=== PATIENT | male | born 1950 | race Hispanic/Latino ===

== ENCOUNTER 2024-02-19 10:05 | Observation (INO) | payer MEDICARE, OTHER ==
[~2024-02-19] VITALS: Ht 170.2 cm; Wt 93.6 kg
[~2024-02-19 10:05] MED LIST: APIX5TAB PO; ATOR40TA71 PO; EMPA10TA PO; EZET10TA81 PO; FOLI0.8T53 PO; LEVO175T9 PO; METO-408 PO; SACU1TAB PO; SIME80TA12 PO; SPIR25TA6 PO; TORS20TA4 PO; TRAM50TA4 PO
[2024-02-19 10:34] LABS: BASOPHILS % (AUTO) 1.2 % (0.0-5.0); EOSINOPHILS # (AUTO) 0.27 K/uL (0.00-0.70); EOSINOPHILS % (AUTO) 3.1 % (0.0-8.0); IMMATURE GRANULOCYTE ABSOLUTE 0.03 K/uL (0-1); LYMPHOCYTES # (AUTO) 1.4 K/uL (1.0-4.8); LYMPHOCYTES % (AUTO) 16.5 % (21.0-51.0); MEAN CORPUSCULAR HEMOGLOBIN 28.9 pg (27.0-33.0); MEAN CORPUSCULAR HGB CONC 31.8 g/dL (32.0-36.0); MEAN CORPUSCULAR VOLUME 90.9 fL (79-99); MONOCYTES # (AUTO) 0.5 K/uL (0.1-1.0); MONOCYTES % (AUTO) 6.2 % (3.0-13.0); NEUTROPHILS # (AUTO) 6.2 K/uL (1.8-7.7); NEUTROPHILS % (AUTO) 72.7 % (40.0-77.0); PLATELET COUNT (AUTO) 180 K/uL (130-400); WHITE BLOOD COUNT (AUTO) 8.6 K/uL (4.8-10.8)
[2024-02-19 10:45] LABS: CREATININE 1.7 mg/dL (0.5-1.3); POTASSIUM 4.5 mmol/L (3.5-5.1)
--- NOTE | 2024-02-19 10:48 | HMCIMG ---
US CHEST WALL SOFT TISSUE REASON: r/o hematoma vs abscess. COMPARISON: None TECHNIQUE: Left chest wall ultrasound study was performed. FINDINGS: Soft tissue swelling is seen around the pacemaker area. No focal mass lesion or hematoma or abscess is identified. IMPRESSION: Findings as described above.
[2024-02-19] MEDS: ondanSETRON 4MG INJ IVP ONE (11:04)
[2024-02-19] MEDS: morPHINE 2 MG SYG IVP ONE (11:05)
--- NOTE | 2024-02-19 11:16 | ERN ---
ED Note History of Present Illness Stated Complaint: SWELLING TO NEW PACEMAKER INSERTION SITE Chief Complaint: Other Problems Time Seen by MD: 10:06 Dictation: 73-year-old male presents to the ED for evaluation of left-sided chest wall pain.. Patient reports chest pain and states he had a pacemaker insertion yesterday performed by Dr. Copeland and is now reporting the surgical site is bleeding and swollen. Allergies: Coded Allergies: No Known Drug Allergies (Unverified Allergy, Unknown, 12/22/18) Home Meds Active Scripts Tramadol Hcl (Tramadol HCl) 50 Mg Tablet, 50 MG PO Q6HPRN PRN for PAIN, #15 TAB 0 Refills Prov:RANDALL COPELAND MD 02/18/24 Torsemide (Torsemide) 20 Mg Tablet, 1 TAB PO DAILY for 90 Days, #90 TAB 3 Refills Prov:FRANCHESKA ABEL MD 01/30/24 Empagliflozin (Jardiance) 10 Mg Tablet, 1 TAB PO DAILY for 90 Days, #90 TAB 0 Refills Prov:FRANCHESKA ABEL MD 01/30/24 Spironolactone (Spironolactone) 25 Mg Tablet, 1 TAB PO DAILY for 90 Days, #90 TAB 3 Refills Prov:FRANCHESKA ABEL MD 01/30/24 Sacubitril/Valsartan (Entresto 24 mg-26 mg Tablet) 24 Mg-26 Mg Tablet, 0.5 TAB PO BID for 90 Days, #45 TAB 3 Refills Prov:FRANCHESKA ABEL MD 01/30/24 Reported Medications Atorvastatin Calcium (Atorvastatin Calcium) 40 Mg Tablet, 1 TAB PO DAILY for 30 Days, #30 TAB 0 Refills 02/14/24 Simethicone (Simethicone) 80 Mg Tab.chew, 2 TAB PO AD for gas for 1 Day, #2 TAB 0 Refills 02/14/24 Ezetimibe (Zetia) 10 Mg Tablet, 1 TAB PO DAILY for 30 Days, #30 TAB 0 Refills 01/27/24 Levothyroxine Sodium (Levothyroxine Sodium) 175 Mcg Tablet, 1 TAB PO DAILY for 30 Days, #30 TAB 0 Refills 01/27/24 Folic Acid/Vit B Complex and C (Nephro Vitamins Tablet) 0.8 Mg Tablet, 0.8 MG PO DAILY, TAB 01/27/24 Metoprolol Succinate (Metoprolol Succinate) 25 Mg Tab.er.24h, 25 MG PO BID, TAB 01/27/24 Apixaban (Eliquis) 5 Mg Tablet, 5 MG PO BID, TAB 01/27/24 Discontinued Reported Medications Simethicone (Simethicone) 80 Mg Tab.chew, 2 TAB PO AD PRN for GA for 1 Day, #2 TAB 0 Refills 01/27/24 Discontinued Scripts Amoxicillin/Potassium Clav (Amox Tr-K Clv 875-125 mg Tab) 875 Mg-125 Mg Tablet, 1 TAB PO BID for 7 Days, #14 TAB 0 Refills Prov:CULLEN HUERTAS MD 01/30/24 Atorvastatin Calcium (LIPITOR) 40 Mg Tablet, 40 MG PO HS for 90 Days, #90 TAB 3 Refills Prov:FRANCHESKA ABEL MD 01/30/24 Past Medical History Past Medical History: CAD, CHF, High Cholesterol, Heart Disease, Hypertension, [place] Additional Past Medical Hx: HARD OF HEARING Surgical History: CABG Review of System Dictation Constitutional: Positive for surgical site evaluation, bleeding, swelling Negative for fever,chills, and weight loss Eyes: Negative for injury, pain,redness, and discharge ENT: Negative for injury,pain or swelling Cardiovascular: Negative for chest pain, palpitations, and edema Respiratory: Negative for shortness of breath, cough, and wheezing, Abdomen/GI: Negative for abdominal pain, nausea, vomiting, diarrhea, and constipation Back: Negative for injury and pain : Negative for injury, bleeding and discharge MS/Extremity: Negative for injury and deformity Skin: Negative for rash, and discoloration Neuro: Negative for headache, weakness, numbness, tingling, and seizure Psych: Negative for suicide ideation, homicidal ideation, and hallucinations Initial Vital Sign VS Vital Signs Date Time Temp Pulse Resp B/P (MAP) Pulse Ox O2 Delivery O2 Flow Rate FiO2 02/19/24 10:06 98.1 79 16 141/79 96 Room Air* 0 21 [place] [id number] [place] [id number] IMAGING REPORT Signed PATIENT: MELVA VYAS MR#: [id number] : 1950 SEX: M AGE: 73 LOCATION: [facility] ORDER 1016 STATUS: REG ER REPORT#: [id number] SERVICE 1014 REASON: pacemaker placement ORDERING PHYSICIAN: GEORGE HUTCHISON PROCEDURE: CXR1VW - CHEST 1VW CHEST 1VW HISTORY: Pacemaker placement COMPARISON: 02/18/2024 FINDINGS: A frontal projection of the chest was obtained. No acute pulmonary infiltrates is seen. Poststernotomy changes are seen. The heart is enlarged. Degenerative changes of the thoracolumbar spine are present. Pacemaker is seen entering from the left. Aortic calcifications are seen. IMPRESSION: 1. No acute pulmonary infiltrate is seen. DICTATED BY: ELISA VIEIRA MD DATE: 02/19/24 105 ELECTRONICALLY SIGNED BY: ELISA VIEIRA MD DATE: 02/19/24 1117 Physical Exam Dictation General: awake, alert, NAD Head/Face: Normocephalic, atraumatic Eyes: PERRL, EOMI, vision at baseline ENT: oral cavity clear, TMs clear, no signs of infection Neck: Trachea midline, supple, no nuchal rigidity Cardiovascular: RRR, normal S1/S2, No MRGs, no JVD Chest wall: Surgical site with mild bleeding and swelling Respiratory: CTAB, no respiratory distress, No rales or wheezes Abdomen: Soft, non-tender, non-distended, normal bowel sounds, no guarding or rebound. Skin: Warm, dry, normal turgor, no rash MS/Extremity: Pulses equal, no cyanosis, neurovascular intact, FROM Neuro: COAx4, GCS 15, strength 5/5, CN 2-12 intact, normal cerebellar exam, normal gait, Psych: Normal behavior, mood, and affect normal Results (Laboratory/Radiology) Laboratory/Radiology Laboratory Tests Test 02/19/24 10:25 White Blood Count 8.6 K/uL (4.8-10.8) Red Blood Count 4.40 MIL/uL (4.50-6.20) L Hemoglobin 12.7 g/dL (14.0-18.0) L Hematocrit 40.0 % (42-54) L Mean Corpuscular Volume 90.9 fL (79-99) Mean Corpuscular Hemoglobin 28.9 pg (27.0-33.0) Mean Corpuscular Hemoglobin Concent 31.8 g/dL (32.0-36.0) L Red Cell Distribution Width 16.0 % (11.0-15.5) H Platelet Count 180 K/uL (130-400) Mean Platelet Volume 10.9 fL (7.5-10.5) H Immature Granulocyte % (Auto) 0.3 % (0-1) Neutrophils (%) (Auto) 72.7 % (40.0-77.0) Lymphocytes (%) (Auto) 16.5 % (21.0-51.0) L Monocytes (%) (Auto) 6.2 % (3.0-13.0) Eosinophils (%) (Auto) 3.1 % (0.0-8.0) Basophils (%) (Auto) 1.2 % (0.0-5.0) Neutrophils # (Auto) 6.2 K/uL (1.8-7.7) Lymphocytes # (Auto) 1.4 K/uL (1.0-4.8) Monocytes # (Auto) 0.5 K/uL (0.1-1.0) Eosinophils # (Auto) 0.27 K/uL (0.00-0.70) Basophils # (Auto) 0.10 K/uL (0.00-0.20) Absolute Immature Granulocyte (auto 0.03 K/uL (0-1) Nucleated Red Blood Cells 0.0 % (0.0-0.19) Sodium Level 143 mmol/L (136-145) Potassium Level 4.5 mmol/L (3.5-5.1) Chloride Level 107 mmol/L (101-111) Carbon Dioxide Level 31 mmol/L (21-32) Blood Urea Nitrogen 30 mg/dL (7-18) H Creatinine 1.7 mg/dL (0.5-1.3) H Glomerular Filtration Rate Calc 42 mL/min (>90) Random Glucose 115 mg/dL (70-105) H Total Calcium 9.0 mg/dL (8.5-10.1) Troponin I High Sensitivity 302 ng/L (4-75) *H [place] [address] [place] [id number] IMAGING REPORT Signed PATIENT: MELVA VYAS MR#: [id number] : 1950 SEX: M AGE: 73 LOCATION: [facility] ORDER 1016 STATUS: REG ER [facility] REPORT#: [id number] SERVICE 1014 REASON: r/o hematoma vs abscess ORDERING PHYSICIAN: GEORGE HUTCHISON PROCEDURE: CHEST SCAN - US CHEST WALL SOFT TISSUE US CHEST WALL SOFT TISSUE REASON: r/o hematoma vs abscess. COMPARISON: None TECHNIQUE: Left chest wall ultrasound study was performed. FINDINGS: Soft tissue swelling is seen around the pacemaker area. No focal mass lesion or hematoma or abscess is identified. IMPRESSION: Findings as described above. DICTATED BY: ELISA VIEIRA MD DATE: 02/19/24 104 ELECTRONICALLY SIGNED BY: ELISA VIEIRA MD DATE: 02/19/24 104 Labs Reviewed?: Yes ED Course ED Course Orders Procedure Category Date Status Time Cbc With Differential LAB 02/19/24 Complete 10:14 Basic Metabolic Panel LAB 02/19/24 Complete 10:14 Troponin I High LAB 02/19/24 Complete Sensitivity 10:14 12 Lead Ekg Tracing- EKG 02/19/24 Complete Technical 10:14 Chest 1vw RAD 02/19/24 Resulted 10:14 Us Chest Wall Soft US 02/19/24 Resulted Tissue 10:14 Morphine 2mg Syg PHA 02/19/24 Complete (Morphine 2mg Syg) 11:00 Ondansetron 4mg Inj PHA 02/19/24 Complete (Zofran 4mg Inj) 11:00 Initiate CHRISTIAN 02/19/24 In Process Hyperglycemia Protoco 11:37 Insulin Regular, PHA 02/19/24 In Process Human 3ml (Humulin R 16:30 Initiate Hypoglycemia CHRISTIAN 02/19/24 In Process Protocol 11:37 Dextrose 50%-Water PHA 02/19/24 In Process (D50w) 12:00 Glucagon 1mg Kit PHA 02/19/24 In Process (Glucagon 1mg Kit) 12:00 Magnesium 2gm Premix PHA 02/19/24 In Process 50ml (Magnesium 2gm 12:00 Cbc With Differential LAB 02/20/24 Verified 04:00 B-Type Natriuretic LAB 02/20/24 Verified Peptide 04:00 Comprehensive LAB 02/20/24 Verified Metabolic Panel 04:00 Creatine Kinase, Total LAB 02/20/24 Verified 04:00 Hemoglobin A1c LAB 02/20/24 Verified 04:00 Hepatic Function Panel LAB 02/20/24 Verified 04:00 Lactic Acid LAB 02/20/24 Verified 04:00 Magnesium LAB 02/20/24 Verified 02:00 Procalcitonin LAB 02/20/24 Verified 04:00 Troponin I High LAB 02/20/24 Verified Sensitivity 04:00 Vital Signs(Adult CPOE 02/19/24 Transmitted Hospitalist) 11:38 Daily Weights CPOE 02/19/24 Transmitted 11:38 I&O Q Shift CPOE 02/19/24 Transmitted 11:38 Diphenhydramine Hcl PHA 02/19/24 In Process (Benadryl Inj) 12:00 Acetaminophen 325 Tab PHA 02/19/24 In Process (Tylenol 325mg Tab 12:00 Acetaminophen 325 Tab PHA 02/19/24 Complete (Tylenol 325mg Tab 12:00 Ondansetron 4mg Inj PHA 02/19/24 In Process (Zofran 4mg Inj) 12:00 Zolpidem Tartrate 5 PHA 02/19/24 In Process Mg Tab (Ambien) 12:00 Mag/Alum/Simeth 30ml PHA 02/19/24 In Process (Maalox Plus 30ml) 12:00 Lactulose 20 Gm/30 Ml PHA 02/19/24 In Process Udcup (Constulose 12:00 Nitroglycerin 0.4mg PHA 02/19/24 In Process Sl Tab (Nitrostat) 12:00 Guaifenesin-Dm PHA 02/19/24 In Process 200/20mg 10ml 12:00 Famotidine 20mg Vial PHA 02/19/24 Complete (Pepcid 20mg Vial) 12:00 Nurse To Enter Home CPOE 02/19/24 Transmitted Medication 11:38 Admit Orders ADM 02/19/24 Transmitted 11:38 Telemetry Monitoring CPOE 02/19/24 Transmitted 11:38 Activity: Br W/Brp CPOE 02/19/24 Transmitted With Assist 11:38 Heart Healthy Diet DIET 02/19/24 Transmitted Lunch Acetaminophen 325 Tab PHA 02/19/24 In Process (Tylenol 325mg Tab 12:00 Ketorolac PHA 02/19/24 In Process Tromethamine 15mg/Ml 12:00 Morphine 2mg Syg PHA 02/19/24 In Process (Morphine 2mg Syg) 12:00 Case Management CM 02/19/24 Transmitted Evaluation 11:38 0.9%Nacl 1000ml (Ns PHA 02/19/24 In Process 1000ml) 12:00 Hydralazine 20mg Inj PHA 02/19/24 In Process (Apresoline 20mg In 12:00 Famotidine 20mg Vial PHA 02/19/24 In Process (Pepcid 20mg Vial) 21:00 Cardiology Consult CONPHYSVC 02/19/24 Transmitted 11:38 Pipe [employer]itter [employer] SS 02/19/24 Transmitted Evaluaton 16:28 Current Medications Medications (Trade) Dose Ordered Sig/Jon Route PRN Reason Start Time Stop Time Status Last Admin Dose Admin Morphine Sulfate (morPHINE 2MG SYG) 2 mg ONCE ONCE IVP 02/19/24 11:00 02/19/24 11:01 DC 02/19/24 11:05 Ondansetron HCl (zoFRAN 4MG INJ) 4 mg ONCE ONCE IVP 02/19/24 11:00 02/19/24 11:01 DC 02/19/24 11:04 Vital Signs Date Time Temp Pulse Resp B/P (MAP) Pulse Ox O2 Delivery O2 Flow Rate FiO2 02/19/24 15:30 98.1 72 16 129/80 99 Room Air* 0 02/19/24 15:00 98.1 71 16 127/75 96 Room Air* 0 02/19/24 14:22 98.1 72 16 129/79 96 Room Air* 0 02/19/24 13:45 98.1 74 16 130/81 97 Room Air* 0 02/19/24 10:06 98.1 73 16 141/79 96 Room Air 02/19/24 10:06 98.1 79 16 141/79 96 Room Air* [address] [address] IMAGING REPORT Signed PATIENT: MELVA VYAS MR#: [id number] : 1950 SEX: M AGE: 73 LOCATION: [facility] ORDER 1016 STATUS: REG ER REPORT#: [id number] SERVICE 1014 REASON: pacemaker placement ORDERING PHYSICIAN: GEORGE HUTCHISON PROCEDURE: CXR1VW - CHEST 1VW CHEST 1VW HISTORY: Pacemaker placement COMPARISON: 02/18/2024 FINDINGS: A frontal projection of the chest was obtained. No acute pulmonary infiltrates is seen. Poststernotomy changes are seen. The heart is enlarged. Degenerative changes of the thoracolumbar spine are present. Pacemaker is seen entering from the left. Aortic calcifications are seen. IMPRESSION: 1. No acute pulmonary infiltrate is seen. DICTATED BY: ELISA VIEIRA MD DATE: 02/19/24 1057 ELECTRONICALLY SIGNED BY: ELISA VIEIRA MD DATE: 02/19/24 1117 Medical Decision Making MDM MDM: Differential diagnosis: Chest pain, Postoperative complication, postoperative hemorrhage Rationale: Tests considered and ordered secondary to shared decision making include: labs, ECG and radiology Previous outside records reviewed: Old ER visits. Risk of complication and/or morbidity or mortality of patient management: None Medications-Per medication reconciliation Need for hospitalization: Patient does meet criteria for hospitalization. Need for emergency major/minor surgery: No There are no social concerns with this patient. Prescription drug management Prescriptions will include symptomatic care Patient's prior external medical records from other ER visits were reviewed by me as indicated. Prior testing and results from previous visits were reviewed. Prior tests were taken into account with medical decision making and resource utilization, independent historian/historians were used to obtain complete medical history. I independently interpreted the test that were performed, results were reviewed by me and considered findings on radiology if ordered. Medical management and examination interpretation discussions were had by me with other qualified healthcare professionals as indicated for the patient's care. DX & DISP Disposition: Inpatient Decision to Admit Date: Feb 19, 2024 Departure Impression: Primary Impression: Chest pain Additional Impressions: Soft tissue swelling of chest wall, S/P placement of cardiac pacemaker Condition: Stable Referrals: FRANCHESKA ABEL MD (PCP) I have reviewed, & agreed with my scribe's, documentation. (Entered by Shama Jaffe, acting as a scribe for CHANCE Hutchison) I have reviewed the case, and I agree with, Diagnosis and Plan I performed the substantive portion of the visit. I have reviewed and personally made and approve the management plan that is documented in the note by myself or the DERECK. I acknowledge for responsibility for the patient's management plan. I personally scribed for KENISHA VARGAS MD ([email or web address]) on 02/19/24 at 11:16. Electronically submitted by Shama Jaffe ([email or web address]). KENISHA VARGAS MD Feb 19, 2024 11:16 GEORGE HUTCHISON Feb 19, 2024 12:17
[2024-02-19] MEDS ORDERED: MAG/ALUM/SIMETH 30 ML UDCUP PO PRN (12:00)
[2024-02-19] MEDS ORDERED: FAMOTIDINE 20MG VIAL IV PRN (12:00)
[2024-02-19] MEDS ORDERED: guaiFENesin-DM 200/20MG 10ML PO PRN (12:00)
[2024-02-19] MEDS ORDERED: DEXTROSE 50%-WATER 50 ML DISP.SYRIN IV PRN (12:00)
[2024-02-19] MEDS ORDERED: MAGNESIUM 2GM PREMIX 50ML 50 ML IV PRN (12:00)
[2024-02-19] MEDS ORDERED: acetaMINOPHEN 325 MG TAB PO PRN ×3 (12:00)
[2024-02-19] MEDS ORDERED: morPHINE 2 MG SYG IVP PRN (12:00)
[2024-02-19] MEDS ORDERED: DiphenhydrAMINE HCL 50 MG/ML VIAL IV PRN (12:00)
[2024-02-19] MEDS ORDERED: NITROGLYCERIN 0.4 MG SL TAB SL PRN (12:00)
[2024-02-19] MEDS ORDERED: ondanSETRON 4MG INJ IV PRN (12:00)
[2024-02-19] MEDS ORDERED: hydrALAZine 20MG/ML VIAL IV PRN (12:00)
[2024-02-19] MEDS ORDERED: LACTULOSE 20 GM/30 ML UDCUP PO PRN (12:00)
[2024-02-19] MEDS ORDERED: ZOLPidem TARTrate 5 MG TAB PO PRN (12:00)
[2024-02-19] MEDS ORDERED: GLUCAGON 1MG KIT 1 MG ML IM PRN (12:00)
--- NOTE | 2024-02-19 12:04 | EKG ---
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
[2024-02-19] MEDS: 0.9%NACL 1000ML 1,000 ML IV SCH (12:10)
--- NOTE | 2024-02-19 13:20 | NUR ---
pt did not bring medications or list family will bring by later
--- NOTE | 2024-02-19 13:53 | HP ---
[facility] HISTORY AND PHYSICAL Date of Service: Feb 19, 2024 Time of Service: 13:42 PCP: self refferal Admitting: Dr Travis, Allergies: No Allergy Information Available, No Known Drug Allergies HISTORY OF PRESENT ILLNESS: [ Patient is 73 years old male with a past medical history of hypertension, diabetes, Coronary Artery Disease, CABG in 2019, mild hypercholesteremia, h ypothyroidism, GERD, recent pacemaker placement 02/18/2024, CHF EF 20 to 25%, who came to emergency department with a complaint of left chest pain since yesterday. Patient stated that yesterday he had a placement of a pacemaker by Dr. Woodward and then he was discharged home. At 1st he had little pain within in progress to worsened worse. Today in the morning when he woke up the left chest pain was unbearable and he was bleeding from the site of pacemaker. Also noted that the swelling has progressed worse. Patient decided to call 911 and come to emergency department for further evaluation. Most recent vital signs temperature 98.1 pulse 79 respirations 16 blood pressure 141/79 patient is on room air satting 96%. WBC 8.6 hemoglobin 12.7 hematocrit 40 platelets 180. Sodium 143 potassium 4.5 CO2 31 creatinine 1.7 BUN 30 GFR 42 troponin three O2 calcium 9.0 random glucose 115 Chest ultrasound showed soft tissue swelling around the pacemaker nothing acute. Chest x-ray negative. We will admit patient for ups for further evaluation and recommendations. was consulted. We will continue to monitor patient in the meantime. A.m. labs] REVIEW OF SYSTEMS CONSTITUTIONAL: Denies fevers, chills, or night sweats. No unintentional weight loss reported. NEUROLOGICAL: Denies headache, amaurosis fugax, motor weakness, sensory deficit, vertigo/spinning sensation, gait abnormalities, or tremors. ENT: No hearing loss, otalgia, otorrhea, rhinitis, rhinorrhea, hoarseness, or sore throat. CARDIOVASCULAR: Denies any exertional angina, dyspnea on exertion, orthopnea, paroxysmal nocturnal dyspnea, palpitations, life-threatening arrhythmias, claudi cation. Left chest pain s/p pacemaker placement 02/18/2024 PULMONARY: Denies any shortness of breath, cough, phlegm/sputum, hemoptysis, pleuritic chest pain. SLEEP: Denies morning headaches, daytime somnolence or napping. Denies difficulty falling asleep, staying asleep, waking from sleep. Denies knowledge of snoring. GASTROINTESTINAL: Denies any type of dysphagia to either liquids or solids. Denies nausea, vomiting, pyrosis, early satiety, abdominal pain, diarrhea, constipation, or changes in stool consistency or caliber. Denies coffee-ground emesis, hematemesis, hematochezia, or melanotic stools. GENITOURINARY: Denies frequency, urgency, nocturia, hematuria or incontinence (Storage/Irritative symptoms.) Low urinary stream, straining to void, urinary intermittency or hesitancy, splitting of the voiding stream, terminal dribbling. ENDOCRINOLOGIC: Denies polyuria, polydipsia, polyphagia or heat/cold intolerances. HEMATOLOGIC: Denies thrombophilia/previous clots, or coagulopathy/bleeding disorders. ONCOLOGIC: Denies personal history of malignancy. DERMATOLOGIC: Denies rashes or pruritus. PSYCHIATRIC: Denies any suicidal or homicidal ideation. Denies hallucinations. PAST MEDICAL HISTORY: [ ] PAST SURGICAL HISTORY: [ ] PAST SOCIAL HISTORY: [ ] FAMILY HISTORY: [ ] Coded Allergies: No Known Drug Allergies (Unverified Allergy, Unknown, 12/22/18) PHYSICAL EXAM GENERAL APPEARANCE: The patient is awake, alert, and oriented, in no acute cardiopulmonary distress. NEUROLOGICAL: Cranial nerves II-XII grossly intact. Motor is 5/5 in bilateral upper and lower extremities proximal to distal. No sensory deficits. HEENT: Face is symmetric. Pupils are equal and reactive. Extraocular movements are intact. NECK: Supple. No JVD. No thyromegaly. No submental, submandibular, pre- /postauricular, occipital or supraclavicular lymphadenopathy. CHEST: Normal chest expansion. No Telemetry. LUNGS: Absence of any rales, rhonchi or any wheezing. CARDIOVASCULAR: Regular. S1 and S2 normal. No appreciable rubs, murmurs or gallops. ABDOMEN: Soft, nontender, and nondistended. There is no rebound, voluntary guarding, or rigidity. : Deferred. No [place]. EXTREMITIES: Non-edematous and not cyanotic. No clubbing. Good capillary refill. SKIN: No skin breakdown. Vital Sign (Last 24 Hours) 02/19/24 10:06 Temp 98.1 Pulse 73 Resp 16 B/P (MAP) 141/79 Pulse Ox 96 O2 Delivery Room Air O2 Flow Rate 0 FiO2 21 LABS: Laboratory: Test 02/19/24 10:25 Range/Units White Blood Count 8.6 4.8-10.8 K/uL Red Blood Count 4.40 L 4.50-6.20 MIL/uL Hemoglobin 12.7 L 14.0-18.0 g/dL Hematocrit 40.0 L 42-54 % Mean Corpuscular Volume 90.9 79-99 fL Mean Corpuscular Hemoglobin 28.9 27.0-33.0 pg Mean Corpuscular Hemoglobin Concent 31.8 L 32.0-36.0 g/dL Red Cell Distribution Width 16.0 H 11.0-15.5 % Platelet Count 180 130-400 K/uL Mean Platelet Volume 10.9 H 7.5-10.5 fL Immature Granulocyte % (Auto) 0.3 0-1 % Neutrophils (%) (Auto) 72.7 40.0-77.0 % Lymphocytes (%) (Auto) 16.5 L 21.0-51.0 % Monocytes (%) (Auto) 6.2 3.0-13.0 % Eosinophils (%) (Auto) 3.1 0.0-8.0 % Basophils (%) (Auto) 1.2 0.0-5.0 % Neutrophils # (Auto) 6.2 1.8-7.7 K/uL Lymphocytes # (Auto) 1.4 1.0-4.8 K/uL Monocytes # (Auto) 0.5 0.1-1.0 K/uL Eosinophils # (Auto) 0.27 0.00-0.70 K/uL Basophils # (Auto) 0.10 0.00-0.20 K/uL Absolute Immature Granulocyte (auto 0.03 0-1 K/uL Nucleated Red Blood Cells 0.0 0.0-0.19 % Sodium Level 143 136-145 mmol/L Potassium Level 4.5 3.5-5.1 mmol/L Chloride Level 107 101-111 mmol/L Carbon Dioxide Level 31 21-32 mmol/L Blood Urea Nitrogen 30 H 7-18 mg/dL Creatinine 1.7 H 0.5-1.3 mg/dL Glomerular Filtration Rate Calc 42 >90 mL/min Random Glucose 115 H 70-105 mg/dL Total Calcium 9.0 8.5-10.1 mg/dL Troponin I High Sensitivity 302 *H 4-75 ng/L Current Medications Medications (Trade) Dose Ordered Sig/Jon Route PRN Reason Start Time Stop Time Status Last Admin Dose Admin Acetaminophen (TYLenol 325MG TAB) 650 mg Q4H PRN PO MILD PAIN (1-3) 02/19/24 12:00 02/19/24 11:48 DC Acetaminophen (TYLenol 325MG TAB) 650 mg Q6H PRN PO MILD PAIN (1-3) 02/19/24 12:00 03/20/24 11:59 Acetaminophen (TYLenol 325MG TAB) 650 mg Q6H PRN PO TEMPERATURE GREATER THAN 101.5 02/19/24 12:00 03/20/24 11:59 Al Hydroxide/Mg Hydroxide (MAALox PLUS 30ML) 30 ml Q6H PRN PO INDIGESTION 02/19/24 12:00 03/20/24 11:59 Dextrose (D50w) 50 ml AD PRN IV HYPOGLYCEMIA PROTOCOL 02/19/24 12:00 03/20/24 11:59 Diphenhydramine HCl (BENAdryl INJ) 25 mg Q6H PRN IV SEVERE ITCHING/RASH 02/19/24 12:00 03/20/24 11:59 Famotidine (Pepcid 20mg Vial) 20 mg BID PRN IV NAUSEA/VOMITING 02/19/24 12:00 02/19/24 11:44 DC Famotidine (Pepcid 20mg Vial) 20 mg Q24H IV 02/19/24 21:00 03/20/24 20:59 Glucagon (Glucagon 1mg Kit) 1 mg AD PRN IM HYPOGLYCEMIA PROTOCOL 02/19/24 12:00 03/20/24 11:59 Guaifenesin/ Dextromethorphan (RobiTUSSin DM 200/20MG 10ML) 10 ml Q4H PRN PO COUGH 02/19/24 12:00 03/20/24 11:59 Hydralazine HCl (APRESOLine 20MG INJ) 10 mg Q6H PRN IV For:SBP above 160;DBP above 90 02/19/24 12:00 03/20/24 11:59 Insulin Human Regular (humuLIN R 100 UNIT/ML 3ML) INSULIN SLIDING SCAL... ACHS SQ 02/19/24 16:30 03/20/24 16:29 Ketorolac Tromethamine (toRADol) 15 mg Q8H PRN IV MODERATE PAIN (4-6) 02/19/24 12:00 02/24/24 11:59 Lactulose (Constulose 20gm/ 30ml Udcup) 20 gm BID PRN PO CONSTIPATION 02/19/24 12:00 03/20/24 11:59 Magnesium Sulfate 50 ml @ 0 mls/hr PROTOCOL PRN IV other 02/19/24 12:00 03/20/24 11:59 Morphine Sulfate (morPHINE 2MG SYG) 1 mg Q4H PRN IVP SEVERE PAIN (7-10) 02/19/24 12:00 02/26/24 11:59 Nitroglycerin (Nitrostat) 0.4 mg PROTOCOL PRN SL CHEST PAIN 02/19/24 12:00 03/20/24 11:59 Ondansetron HCl (zoFRAN 4MG INJ) 4 mg Q6H PRN IV NAUSEA/VOMITING 02/19/24 12:00 03/20/24 11:59 Sodium Chloride 1,000 ml @ 60 mls/hr [id number] IV 02/19/24 12:00 03/20/24 11:59 02/19/24 12:10 60 MLS/HR Zolpidem Tartrate (AmbIEN) 5 mg HS PRN PO INSOMNIA 02/19/24 12:00 03/20/24 11:59 DIAGNOSTICS / RADIOLOGY: [ ] ASSESSMENT: [ Acute hypoxic respiratory failure POA Acute left-sided chest pain POA Pacemaker placement 02/18/[address] Woodward Hypertroponinemia POA Uncontrolled hypertension POA Uncontrolled diabetes mellitus type 2 with hypoglycemia POA Coronary Artery Disease s/p CABG 2017 POA CHF EF 20 to 25% systolic dysfunction, diastolic function unable to be assessed, POA Acute on chronic kidney disease POA Generalized weakness POA Morbid obesity BMI 36 POA Multifactorial anemia POA Limited immobility secondary to physical deconditioning POA Hypercholesterolemia POA Hypothyroidism POA GERD POA Recent strep A positive 02/03] PLAN: [Admit to: Medical-surgical floor with tele Consults: Antibiotics: Tests: NEURO: Minimize central acting medications as possible. Fall Precautions. Well lighted room through the day and minimize interruptions through the night to prevent acute delirium. PULMONARY: Supplemental 02 as needed BiPAP as necessary, for respiratory distress Titrate Fio2 to keep Spo2 > or = 90% DuoNebs and CPT as needed IS hourly while awake for pulmonary hygiene Out of bed to chair as tolerated VAP Bundle Maintain aspiration precautions at all times CARDIOVASCULAR: Follow hemodynamics. Vital signs per facility protocol GI & NUTRITION: Continue nutritional support Aspirations precautions Prokinetic agents and laxatives as needed KIDNEYS & ELECTROLYTES: Strict monitoring of intake and output Daily weights Avoid nephrotoxic agents Monitor electrolytes and replace as needed Goal urine output of 30mL/hr or 0.5mL/kg/hr Medications to be dosed according to renal function. Avoid contrast if possible ENDOCRINE: Maintain blood glucose between 100-180 at all times. Insulin sliding scale for blood glucose management Hypoglycemia and hyperglycemia protocol in place INFECTIOUS DISEASE: Trend temperature, WBC and procalcitonin level Follow cultures, deescalate antibiotics as soon as possible. Panculture if new onset fever HEMATOLOGY & COAGULATION: Monitor H&H. Keep Hgb > 7 Transfuse 1 unit of PRBC for Hgb < 7 Transfuse 1 pack of platelets of platelets < 20, 000 Watch for any signs and symptoms of bleeding SKIN: Pressure ulcer prevention per facility protocol Specialty mattress as needed Treatment plan discussed with patient and family at the bedside Medications to be reconciled once obtained by patient and/or family and available to be reconciled in computer p.r.n. medication for pain nausea and vomiting Questions were answered We will continue to monitor the patient closely Hog Stomach Preparer for disposition Rehab: PT/OT GI: PPI DVT: SCD's Code Status: Full Resuscitation Disposition: TBD Prognosis: Guarded ] ADVANCED CARE PLANNING 1. Which of the following were discussed? Hospice Care - Yes / No Therapeutic options - Yes / No Advance Directives - Yes / No Other discussions - 2. Discussed with who? Patient 3. Voluntary nature of this service was explained to the patient? Yes / No 4. Amount of time spent - ___ more than 35 minutes ____ 5. Reviewed by Physician? (if this service was performed by NPP) Yes / No ATTESTATION BY PHYSICIAN I have seen and examined the patient. I reviewed the documentation, medical decision making, and treatment plan as noted by the mid-level provider above. I agree with the findings and plan of care. BhadVictoria lomax MD, [facility] Feb 19, 2024 13:53
--- NOTE | 2024-02-19 14:01 | NUR ---
CARDILOGY CONSULT DONE DR COPELAND MADE AWARE
--- NOTE | 2024-02-19 15:55 | NUR ---
DR COPELAND AT BEDSIDE FOR CARDIOLOGY CONSULT
--- NOTE | 2024-02-19 16:00 | NUR ---
[employer] NAVIGATION INSTALLER NURSE AT BEDSIDE FOR APPLICATION OF PRESSURE DRESSING TO LEFT CHEST
--- NOTE | 2024-02-19 16:28 | CONS ---
[facility] CARDIOLOGY CONSULTATION NOTE Date Patient Seen: Feb 19, 2024 Time of Visit: 16:09 Reason for Consultation: Chest pain History of Present Illness: The patient is a 74-year-old male with coronary artery disease, ischemic cardiomyopathy with EF 20-25% who underwent dual-chamber ICD (not pacemaker) implantation yesterday. The patient has chronic left shoulder pain. During the procedure, he complained of severe left shoulder pain however this subsided once moderate sedation was given. The procedure was uneventful and he was discharged home yesterday. He then experienced excruciating pain in his shoulder and at the site of the defibrillator. He called 911 and presented to the emergency room. I examined the patient. He has a small hematoma with some surface bleeding noted on the dressing. His pain is worse at the shoulder with palpation he also. He also has moderate pain at the site but only with palpation, and no chest pain. Labs are unremarkable. His creatinine is 1.7 which is chronic. His troponin is 302 however he has always run positive troponins up to 292 in January of 2024. The patient was noted yesterday to have very poor hygiene. Today, he had dried rice on his chest. We would question whether or not he is being adequately ca red for at home. Physical Examination: GENERAL: The patient is in no apparent distress. He appears to have poor hygiene as was noted yesterday as well. HEENT: Grossly within normal limits NECK: No JVD LUNGS: Clear HEART: Regular with no murmur CHEST: Tenderness to palpation is noted in H&P EXT: No edema Vital Signs (last 8hr) Date Time Temp Pulse Resp B/P (MAP) Pulse Ox O2 Delivery O2 Flow Rate FiO2 02/19/24 14:22 98.1 72 16 129/79 96 Room Air* 0 21 02/19/24 10:06 98.1 73 16 141/79 96 Room Air 02/19/24 10:06 98.1 79 16 141/79 96 Room Air* 0 21 Laboratory: [ ] Hematology Labs: Test 02/19/24 10:25 Range/Units White Blood Count 8.6 4.8-10.8 K/uL Red Blood Count 4.40 L 4.50-6.20 MIL/uL Hemoglobin 12.7 L 14.0-18.0 g/dL Hematocrit 40.0 L 42-54 % Mean Corpuscular Volume 90.9 79-99 fL Mean Corpuscular Hemoglobin 28.9 27.0-33.0 pg Mean Corpuscular Hemoglobin Concent 31.8 L 32.0-36.0 g/dL Red Cell Distribution Width 16.0 H 11.0-15.5 % Platelet Count 180 130-400 K/uL Mean Platelet Volume 10.9 H 7.5-10.5 fL Immature Granulocyte % (Auto) 0.3 0-1 % Neutrophils (%) (Auto) 72.7 40.0-77.0 % Lymphocytes (%) (Auto) 16.5 L 21.0-51.0 % Monocytes (%) (Auto) 6.2 3.0-13.0 % Eosinophils (%) (Auto) 3.1 0.0-8.0 % Basophils (%) (Auto) 1.2 0.0-5.0 % Neutrophils # (Auto) 6.2 1.8-7.7 K/uL Lymphocytes # (Auto) 1.4 1.0-4.8 K/uL Monocytes # (Auto) 0.5 0.1-1.0 K/uL Eosinophils # (Auto) 0.27 0.00-0.70 K/uL Basophils # (Auto) 0.10 0.00-0.20 K/uL Absolute Immature Granulocyte (auto 0.03 0-1 K/uL Nucleated Red Blood Cells 0.0 0.0-0.19 % Chemistry Labs: Test 02/19/24 10:25 Range/Units Sodium Level 143 136-145 mmol/L Potassium Level 4.5 3.5-5.1 mmol/L Chloride Level 107 101-111 mmol/L Carbon Dioxide Level 31 21-32 mmol/L Blood Urea Nitrogen 30 H 7-18 mg/dL Creatinine 1.7 H 0.5-1.3 mg/dL Glomerular Filtration Rate Calc 42 >90 mL/min Random Glucose 115 H 70-105 mg/dL Total Calcium 9.0 8.5-10.1 mg/dL Troponin I High Sensitivity 302 *H 4-75 ng/L Diagnostics / Radiology: [Copy/Paste Echos/Imaging Report here] Assessment: 1. Chronic left shoulder pain 2. Postoperative pain at ICD implantation site from yesterday 3. Small hematoma at ICD site 4. No cardiac source for chest pain 5. Chronic renal insufficiency 6. Elevated troponin-chronic 7. Poor hygiene -question of home situation. Plan: 1. The chest dressing was changed with a nonadherent dressing and Tegaderm 2. A pressure dressing was applied by outside laborer staff 3. The patient has already been admitted. I would recommend a director of social media marketing consult to evaluate this patient's home situation given his poor hygiene and suspicion of for care at home. 4. I will re-evaluate the hematoma tomorrow. Thank you very much for this consultation. RANDALL COPELAND MD Feb 19, 2024 16:28
[2024-02-19] MEDS: INSULIN humuLIN R 100 UNIT/ML 3ML SQ SCH (16:30)
--- NOTE | 2024-02-19 20:59 | NUR ---
ATTEMPTED TO CALL REPORT, NURSE NOT AVAILABLE AT THIS TIME WILL CALL BACK
[2024-02-19 22:00] VITALS: BP 123/84; PULSE 78; RESP 18; TEMP 97.7; O2SAT 98
[2024-02-19] MEDS: FAMOTIDINE 20MG VIAL IV SCH (22:12)
[2024-02-19] MEDS: ketOROlac 15MG/ML VIAL (15MG/ML) IV PRN (22:12)
[2024-02-20 04:00] VITALS: BP 113/68; PULSE 67; RESP 19; TEMP 97.8
[2024-02-20 05:21] LABS: BASOPHILS # (AUTO) 0.07 K/uL (0.00-0.20); EOSINOPHILS # (AUTO) 0.21 K/uL (0.00-0.70); EOSINOPHILS % (AUTO) 2.9 % (0.0-8.0); IMMATURE GRANULOCYTE ABSOLUTE 0.02 K/uL (0-1); LYMPHOCYTES # (AUTO) 1.5 K/uL (1.0-4.8); LYMPHOCYTES % (AUTO) 20.4 % (21.0-51.0); MEAN CORPUSCULAR HEMOGLOBIN 29.2 pg (27.0-33.0); MEAN CORPUSCULAR HGB CONC 32.1 g/dL (32.0-36.0); MEAN CORPUSCULAR VOLUME 91.2 fL (79-99); MONOCYTES # (AUTO) 0.6 K/uL (0.1-1.0); NEUTROPHILS % (AUTO) 67.4 % (40.0-77.0); PLATELET COUNT (AUTO) 157 K/uL (130-400); RED BLOOD CELL COUNT(AUTO) 3.73 MIL/uL (4.50-6.20); RED CELL DISTRIBUTION WIDTH 16.3 % (11.0-15.5); WHITE BLOOD COUNT (AUTO) 7.3 K/uL (4.8-10.8)
[2024-02-20 05:44] LABS: ALBUMIN 2.7 g/dL (3.5-5.0); BILIRUBIN,DIRECT 0.1 mg/dL (0.0-0.3); BILIRUBIN,TOTAL 0.5 mg/dL (0.2-1.0); CREATININE 1.6 mg/dL (0.5-1.3); MAGNESIUM 1.9 mg/dL (1.80-2.40); POTASSIUM 4.5 mmol/L (3.5-5.1); TOTAL PROTEIN, SERUM 5.8 g/dL (6.0-8.3)
[2024-02-20] MEDS ORDERED: SIMETHICONE 80 MG TAB.CHEW PO SCH (07:00)
[2024-02-20] MEDS: levoTHYROxine 25 MCG TABLET PO SCH (07:52)
[2024-02-20] MEDS: levoTHYROxine 150 MCG TABLET PO SCH (07:52)
[2024-02-20 08:00] VITALS: BP 118/67; PULSE 77; RESP 18; TEMP 97.3; O2SAT 99
--- NOTE | 2024-02-20 10:47 | PN ---
The patient is doing well today. He looks less disheveled, thanks to the nursing staff. The pressure dressing was removed and there is no residual hematoma. The dressing is clean and dry. The patient complains only of mild pain in his left shoulder. environmental services project manager has addressed the issues brought up yesterday and is evaluating. Plan: 1. The patient can be discharged home from a cardiac standpoint, pending completion of rn social services evaluation and disposition. 2. The patient already has an appointment in the office in approximately a week to 10 days. 3. Will be important for this patient to keep the dressing on until we see him in the office to ensure that it does not get contaminated. Vitals/Labs Vital Signs Date Time Temp Pulse Resp B/P (MAP) Pulse Ox O2 Delivery O2 Flow Rate FiO2 02/20/24 08:00 97.3 77 18 118/67 99 Room Air 21 02/19/24 22:00 0 Laboratory Tests 02/20/24 05:03 Medications Current Medications Morphine Sulfate 2 mg ONCE ONCE IVP Last administered on 02/19/24at 11:05; Start 02/19/24 at 11:00; Stop 02/19/24 at 11:01; Status DC Ondansetron HCl 4 mg ONCE ONCE IVP Last administered on 02/19/24at 11:04; Start 02/19/24 at 11:00; Stop 02/19/24 at 11:01; Status DC Insulin Human Regular INSULIN SLIDING SCAL... ACHS SQ; Start 02/19/24 at 16:30; Stop 03/20/24 at 16:29 Dextrose 50 ml AD PRN IV; Start 02/19/24 at 12:00; Stop 03/20/24 at 11:59 Glucagon 1 mg AD PRN IM; Start 02/19/24 at 12:00; Stop 03/20/24 at 11:59 Magnesium Sulfate 50 ml @ 0 mls/hr PROTOCOL PRN IV; Start 02/19/24 at 12:00; Stop 03/20/24 at 11:59 Diphenhydramine HCl 25 mg Q6H PRN IV; Start 02/19/24 at 12:00; Stop 03/20/24 at 11:59 Acetaminophen 650 mg Q6H PRN PO; Start 02/19/24 at 12:00; Stop 03/20/24 at 11:59 Acetaminophen 650 mg Q4H PRN PO; Start 02/19/24 at 12:00; Stop 02/19/24 at 11:48; Status DC Ondansetron HCl 4 mg Q6H PRN IV; Start 02/19/24 at 12:00; Stop 03/20/24 at 11:59 Zolpidem Tartrate 5 mg HS PRN PO; Start 02/19/24 at 12:00; Stop 03/20/24 at 11:59 Al Hydroxide/Mg Hydroxide 30 ml Q6H PRN PO; Start 02/19/24 at 12:00; Stop 03/20/24 at 11:59 Lactulose 20 gm BID PRN PO; Start 02/19/24 at 12:00; Stop 03/20/24 at 11:59 Nitroglycerin 0.4 mg PROTOCOL PRN SL; Start 02/19/24 at 12:00; Stop 03/20/24 at 11:59 Guaifenesin/ Dextromethorphan 10 ml Q4H PRN PO; Start 02/19/24 at 12:00; Stop 03/20/24 at 11:59 Famotidine 20 mg BID PRN IV; Start 02/19/24 at 12:00; Stop 02/19/24 at 11:44; Status DC Acetaminophen 650 mg Q6H PRN PO; Start 02/19/24 at 12:00; Stop 03/20/24 at 11:59 Ketorolac Tromethamine 15 mg Q8H PRN IV Last administered on 02/19/24at 22:12; Start 02/19/24 at 12:00; Stop 02/24/24 at 11:59 Morphine Sulfate 1 mg Q4H PRN IVP; Start 02/19/24 at 12:00; Stop 02/26/24 at 11:59 Sodium Chloride 1,000 ml @ 60 mls/hr [id number] IV Last administered on 02/19/24at 12:10; Start 02/19/24 at 12:00; Stop 03/20/24 at 11:59 Hydralazine HCl 10 mg Q6H PRN IV; Start 02/19/24 at 12:00; Stop 03/20/24 at 11:59 Famotidine 20 mg Q24H IV Last administered on 02/19/24at 22:12; Start 02/19/24 at 21:00; Stop 03/20/24 at 20:59 Atorvastatin Calcium 40 mg DAILY PO; Start 02/20/24 at 09:00; Stop 03/21/24 at 08:59 Empaglifozin 10 mg DAILY PO; Start 02/20/24 at 09:00; Stop 03/21/24 at 08:59 EZETIMIBE 10 mg DAILY PO; Start 02/20/24 at 09:00; Stop 03/21/24 at 08:59 Metoprolol Succinate 25 mg BID PO; Start 02/20/24 at 09:00; Stop 03/21/24 at 08:59 Sacubitril/ Valsartan 1 each BID PO; Start 02/20/24 at 09:00; Stop 03/21/24 at 08:59 Simethicone 40 mg AD PO; Start 02/20/24 at 07:00; Stop 03/21/24 at 06:59 Spironolactone 25 mg DAILY PO; Start 02/20/24 at 09:00; Stop 03/21/24 at 08:59 Torsemide 5 mg DAILY PO; Start 02/20/24 at 09:00; Stop 03/21/24 at 08:59 Vitamin B Complex/ Vit C/Folic Acid 1 cap DAILY PO; Start 02/20/24 at 09:00; Stop 03/21/24 at 08:59 Levothyroxine Sodium 150 mcg SYN PO Last administered on 02/20/24at 07:52; Start 02/20/24 at 07:00; Stop 03/21/24 at 06:59 Levothyroxine Sodium 25 mcg SYN PO Last administered on 02/20/24at 07:52; Start 02/20/24 at 07:00; Stop 03/21/24 at 06:59 RANDALL COPELAND MD Feb 20, 2024 10:47
[2024-02-20] MEDS: Vitamin B Complex/Vit C/Folic Acid PO SCH (11:34)
[2024-02-20] MEDS: SPIRONOLACTONE 25 MG TAB PO SCH (11:35)
--- NOTE | 2024-02-20 11:35 | NUR ---
DCP: HOME met with pt who states he lives with his [id number]. Pt alert and oriented, is a [place], is seen at [facility] in [place]. Pt states he is able to complete ADLS on his own, and daughter assist him as needed with home management, meal prep and transportation. Pt has a walker and w/c, states he is pending approval for electric w/c thru [facility]. Pt has appt next week at [facility] and will discuss provider services. Pt has no HH at this time. Pt states he is well cared for by his family and denies neglect. Pt denies need for SNF and wants to return home at [place]. Nurse Julia vicente. Addendum: 02/20/24 at 1142 by SCAR MICHAUD Amended: Links added.
[2024-02-20] MEDS: EMPAGLIFLOZIN 10MG TABLET PO SCH (11:36)
[2024-02-20] MEDS: TORSEMIDE 20 MG TAB PO SCH (11:36)
[2024-02-20] MEDS: EZETIMIBE 10 MG TAB PO SCH (11:36)
[2024-02-20] MEDS: SACUBITRIL/VALSARTAN 1 EACH TABLET PO SCH (11:36)
[2024-02-20] MEDS: atorVAStatin 40 MG TABLET PO SCH (11:36)
[2024-02-20] MEDS: metOPROLol sucCINATE 25 MG TAB.SR.24H PO SCH (11:36)
[2024-02-20 12:00] VITALS: BP 114/70; PULSE 72; RESP 18; TEMP 98.1
--- NOTE | 2024-02-20 13:00 | NUR ---
PATIENT READY FOR DISCHARGE. NO CHANGE IN STATUS. DISCUSSED PLAN OD CARE, HOME MEDICATION, DIET RESTRICTIONS AND FOLLOW UP APPOINTMENTS. DISCUSSED WITH PATIENT THE IMPORTANCE OF NOT TAKING HIS XARELTO FOR [address] LANGSTON ORDERS. PATIENT VERBALIZED UNDERSTANDING. DISCONTINUED TELEMETRY AND IV ACCESS. Addendum: 02/20/24 at 1949 by LEVI SLADE RN RN DR. MIN LANGSTON
[2024-02-20] MEDS ORDERED: LEVO25TA9 PO (13:10)
--- NOTE | 2024-02-20 13:14 | DS ---
Discharge Summary Hospital Course Summary: DATE OF ADMISSION:[02/19/2024] DATE OF DISCHARGE:[02/20/2024] DISPOSITION:[Home] CONDITION:[Medically stable] CONSULTANTS:[Video Editing Intern] FOLLOW UP APPOINTMENTS:[PCP [address] 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 Patient stated that yesterday he had a placement of a pacemaker by Dr. Copeland and then he was discharged home. At 1st he had little pain within in progress to worsened worse. Today in the morning when he woke up the left chest pain was unbearable and he was bleeding from the site of pacemaker. Also noted that the swelling has progressed worse. Patient decided to call 911 and come to emergency department for further evaluation. Most recent vital signs temperature 98.1 pulse 79 respirations 16 blood pressure 141/79 patient is on room air satting 96%. WBC 8.6 hemoglobin 12.7 hematocrit 40 platelets 180. Sodium 143 potassium 4.5 CO2 31 creatinine 1.7 BUN 30 GFR 42 troponin three O2 calcium 9.0 random glucose 115 Chest ultrasound showed soft tissue swelling around the pacemaker nothing acute. Chest x-ray negative. Patient was evaluated by the ground hand and cleared patient to be discharged home from the cardiac standpoint. Hold Eliquis for 72 hours and then restart as per route sales trainee. Follow-up in the office in 7 to 10 days. Follow- up with PCP in 2 to 3 days. Also per route sales trainee case management social worker to address the issue that were brought up yesterday for evaluation. Nurse practitioner spoke with the social work supervisor who med with the patient who states he lives with his Eda [phone]. Pt alert and oriented, is a , is seen at [facility] in [place]. Pt states he is able to complete ADLS on his own, and daughter assist him as needed with home management, meal prep and transportation. Pt has a walker and w/c, states he is pending approval for electric w/c thru [facility]. Pt has appt next week at [facility] and will discuss provider services. Pt has no HH at this time. Pt states he is well cared for by his family and denies neglect. Pt denies need for SNF and wants to return home at ut. Procedure(s): REVIEW OF SYSTEMS CONSTITUTIONAL: Denies fevers, chills, or night sweats. No unintentional weight loss reported. NEUROLOGICAL: Denies headache, amaurosis fugax, motor weakness, sensory deficit, vertigo/spinning sensation, gait abnormalities, or tremors. ENT: No hearing loss, otalgia, otorrhea, rhinitis, rhinorrhea, hoarseness, or sore throat. CARDIOVASCULAR: Denies any exertional angina, dyspnea on exertion, orthopnea, paroxysmal nocturnal dyspnea, palpitations, life-threatening arrhythmias, claudication. PULMONARY: Denies any shortness of breath, cough, phlegm/sputum, hemoptysis, pleuritic chest pain. SLEEP: Denies morning headaches, daytime somnolence or napping. Denies difficulty falling asleep, staying asleep, waking from sleep. Denies knowledge of snoring. GASTROINTESTINAL: Denies any type of dysphagia to either liquids or solids. Denies nausea, vomiting, pyrosis, early satiety, abdominal pain, diarrhea, constipation, or changes in stool consistency or caliber. Denies coffee-ground emesis, hematemesis, hematochezia, or melanotic stools. GENITOURINARY: Denies frequency, urgency, nocturia, hematuria or incontinence (Storage/Irritative symptoms.) Low urinary stream, straining to void, urinary intermittency or hesitancy, splitting of the voiding stream, terminal dribbling. ENDOCRINOLOGIC: Denies polyuria, polydipsia, polyphagia or heat/cold intolerances. HEMATOLOGIC: Denies thrombophilia/previous clots, or coagulopathy/bleeding disorders. ONCOLOGIC: Denies personal history of malignancy. DERMATOLOGIC: Denies rashes or pruritus. PSYCHIATRIC: Denies any suicidal or homicidal ideation. Denies hallucinations. Assessment/Plan: ASSESSMENT: [ Acute hypoxic respiratory failure POA Acute left-sided chest pain POA Pacemaker placement 02/18/[address] Copeland Hypertroponinemia POA Uncontrolled hypertension POA Uncontrolled diabetes mellitus type 2 with hypoglycemia POA Coronary Artery Disease s/p CABG 2017 POA CHF EF 20 to 25% systolic dysfunction, diastolic function unable to be assessed, POA Acute on chronic kidney disease POA Generalized weakness POA Morbid obesity BMI 36 POA Multifactorial anemia POA Limited immobility secondary to physical deconditioning POA Hypercholesterolemia POA Hypothyroidism POA GERD POA Recent strep A positive 02/03] Home Medications: Active Scripts Levothyroxine Sodium (Synthroid 25 Mcg Tab) 25 Mcg Tablet, 25 MCG PO SYN, #60 TAB Prov:ARIS DING BISCUITWARE BRUSHER 02/20/24 Torsemide (Torsemide) 20 Mg Tablet, 1 TAB PO DAILY for 90 Days, #90 TAB 3 Refills Prov:FRANCHESKA ABEL MD 01/30/24 Empagliflozin (Jardiance) 10 Mg Tablet, 1 TAB PO DAILY for 90 Days, #90 TAB 0 Refills Prov:FRANCHESKA ABEL MD 01/30/24 Spironolactone (Spironolactone) 25 Mg Tablet, 1 TAB PO DAILY for 90 Days, #90 TAB 3 Refills Prov:FRANCHESKA ABEL MD 01/30/24 Sacubitril/Valsartan (Entresto 24 mg-26 mg Tablet) 24 Mg-26 Mg Tablet, 0.5 TAB PO BID for 90 Days, #45 TAB 3 Refills Prov:FRANCHESKA ABEL MD 01/30/24 Reported Medications Atorvastatin Calcium (Atorvastatin Calcium) 40 Mg Tablet, 1 TAB PO DAILY for 30 Days, #30 TAB 0 Refills 02/14/24 Simethicone (Simethicone) 80 Mg Tab.chew, 2 TAB PO AD for gas for 1 Day, #2 TAB 0 Refills 02/14/24 Ezetimibe (Zetia) 10 Mg Tablet, 1 TAB PO DAILY for 30 Days, #30 TAB 0 Refills 01/27/24 Levothyroxine Sodium (Levothyroxine Sodium) 175 Mcg Tablet, 1 TAB PO DAILY for 30 Days, #30 TAB 0 Refills 01/27/24 Folic Acid/Vit B Complex and C (Nephro Vitamins Tablet) 0.8 Mg Tablet, 0.8 MG PO DAILY, TAB 01/27/24 Metoprolol Succinate (Metoprolol Succinate) 25 Mg Tab.er.24h, 25 MG PO BID, TAB 01/27/24 Apixaban (Eliquis) 5 Mg Tablet, 5 MG PO BID, TAB 01/27/24 Discontinued Reported Medications Simethicone (Simethicone) 80 Mg Tab.chew, 2 TAB PO AD PRN for GA for 1 Day, #2 TAB 0 Refills 01/27/24 Discontinued Scripts Tramadol Hcl (Tramadol HCl) 50 Mg Tablet, 50 MG PO Q6HPRN PRN for PAIN, #15 TAB 0 Refills Prov:RANDALL COPELAND MD 02/18/24 Amoxicillin/Potassium Clav (Amox Tr-K Clv 875-125 mg Tab) 875 Mg-125 Mg Tablet, 1 TAB PO BID for 7 Days, #14 TAB 0 Refills Prov:CULLEN HUERTAS MD 01/30/24 Atorvastatin Calcium (LIPITOR) 40 Mg Tablet, 40 MG PO HS for 90 Days, #90 TAB 3 Refills Prov:FRANCHESKA ABEL MD 01/30/24 Time spent arranging discharge: 31-60 minutes ATTESTATION BY PHYSICIAN I have seen and examined the patient. I reviewed the documentation, medical decision making, and treatment plan as noted by the mid-level provider above. I agree with the findings and plan of care. Victoria Travis MD, [facility] Feb 20, 2024 13:14
== END 2024-02-20 15:42 | disposition home or self-care (01) ==
LOC: EDH 10:05 → EDHIP 11:38 → 4DH 20:38
PROVIDERS: ADMIT Hospitalist; ATTEND Hospitalist
DX: J96.01 Acute respiratory failure with hypoxia (principal); R07.89 Other chest pain; R79.89 Other specified abnormal findings of blood chemistry; I13.0 Hypertensive heart and chronic kidney disease with heart failure and stage 1 through stage 4 chronic kidney disease, or unspecified chronic kidney disease; E11.22 Type 2 diabetes mellitus with diabetic chronic kidney disease; N18.9 Chronic kidney disease, unspecified; I50.20 Unspecified systolic (congestive) heart failure; E11.649 Type 2 diabetes mellitus with hypoglycemia without coma; N17.9 Acute kidney failure, unspecified; E66.01 Morbid (severe) obesity due to excess calories; D63.1 Anemia in chronic kidney disease; E03.9 Hypothyroidism, unspecified; K21.9 Gastro-esophageal reflux disease without esophagitis; E78.00 Pure hypercholesterolemia, unspecified; M79.89 Other specified soft tissue disorders; G89.18 Other acute postprocedural pain; M25.512 Pain in left shoulder; L76.32 Postprocedural hematoma of skin and subcutaneous tissue following other procedure; I25.10 Atherosclerotic heart disease of native coronary artery without angina pectoris; I25.5 Ischemic cardiomyopathy; Z95.0 Presence of cardiac pacemaker; Z95.1 Presence of aortocoronary bypass graft; Z68.36 Body mass index [BMI] 36.0-36.9, adult; Z79.899 Other long term (current) drug therapy
CPT/HCPCS: 96374; 96361; 96375; 99285; 84484 ×2; 80048 ×2; 85025 ×2; 82948 ×3; 36415 ×2; 71045; 76604; 93005; 83036; 82550; 80076; 83735; 83880; 83605; 84145; J3490; J2270; J7030; J2405; J1885; G0378 ×3

== ENCOUNTER → 2024-03-05 | Outpatient (CLI) | payer OTHER ==
[~2024-03-05] MED LIST changes: +LEVO25TA9 PO; -TRAM50TA4 PO
[2024-03-05 12:49] LABS: BASOPHILS # (AUTO) 0.05 K/uL (0.00-0.20); BASOPHILS % (AUTO) 0.6 % (0.0-5.0); EOSINOPHILS # (AUTO) 0.21 K/uL (0.00-0.70); EOSINOPHILS % (AUTO) 2.6 % (0.0-8.0); IMMATURE GRANULOCYTE ABSOLUTE 0.09 K/uL (0-1); LYMPHOCYTES # (AUTO) 1.9 K/uL (1.0-4.8); LYMPHOCYTES % (AUTO) 22.9 % (21.0-51.0); MEAN CORPUSCULAR HEMOGLOBIN 28.6 pg (27.0-33.0); MEAN CORPUSCULAR HGB CONC 30.8 g/dL (32.0-36.0); MEAN CORPUSCULAR VOLUME 93.1 fL (79-99); MONOCYTES # (AUTO) 0.5 K/uL (0.1-1.0); MONOCYTES % (AUTO) 6.5 % (3.0-13.0); NEUTROPHILS # (AUTO) 5.4 K/uL (1.8-7.7); NEUTROPHILS % (AUTO) 66.3 % (40.0-77.0); PLATELET COUNT (AUTO) 167 K/uL (130-400); RED BLOOD CELL COUNT(AUTO) 4.19 MIL/uL (4.50-6.20); RED CELL DISTRIBUTION WIDTH 16.7 % (11.0-15.5); WHITE BLOOD COUNT (AUTO) 8.2 K/uL (4.8-10.8)
[2024-03-05 13:22] LABS: ALBUMIN 3.2 g/dL (3.5-5.0); BILIRUBIN,TOTAL 1.6 mg/dL (0.2-1.0); CREATININE 1.3 mg/dL (0.5-1.3); POTASSIUM 4.1 mmol/L (3.5-5.1); TOTAL PROTEIN, SERUM 7.1 g/dL (6.0-8.3)
== END | disposition home or self-care (01) ==
LOC: LAB 10:47
PROVIDERS: ATTEND Internal Medicine Cardiovascular Disease
DX: T14.8XXA Other injury of unspecified body region, initial encounter (principal); Z95.810 Presence of automatic (implantable) cardiac defibrillator; X58.XXXA Exposure to other specified factors, initial encounter; Y93.89 Activity, other specified; Y92.89 Other specified places as the place of occurrence of the external cause; Y99.8 Other external cause status
CPT/HCPCS: 36415; 80053; 85025; 87040

== ENCOUNTER 2024-04-28 07:40 | Day surgery (SDC) | payer OTHER ==
--- NOTE | 2024-04-24 10:04 | EKG ---
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 : 1950 Requested By: RANDALL COPELAND Order Number: [id number] Reading MD: Yousif Wick Measurements Intervals [place] Rate: 76 P: 32 [place]: 248 QRS: -12 QRSD: 98 T: 87 QT: 413 QTc: 465 Interpretive Statements Sinus rhythm Prolonged [place] interval Low voltage, extremity and precordial leads Consider anteroseptal infarct Nonspecific T abnormalities, lateral leads Compared to ECG 02/19/2024 10:41:24 Low QRS voltage now present Myocardial infarct finding still present T-wave abnormality still present Electronically Signed On 04-26-2024 18:33:44 CDT by Yousif Wick Please click the below link to view image of tracing.
[2024-04-24 10:05] LABS: BASOPHILS # (AUTO) 0.08 K/uL (0.00-0.20); BASOPHILS % (AUTO) 1.4 % (0.0-5.0); EOSINOPHILS # (AUTO) 0.24 K/uL (0.00-0.70); EOSINOPHILS % (AUTO) 4.2 % (0.0-8.0); HEMATOCRIT 41.4 % (42-54); IMMATURE GRANULOCYTE ABSOLUTE 0.02 K/uL (0-1); LYMPHOCYTES # (AUTO) 1.1 K/uL (1.0-4.8); LYMPHOCYTES % (AUTO) 19.3 % (21.0-51.0); MEAN CORPUSCULAR HEMOGLOBIN 29.3 pg (27.0-33.0); MEAN CORPUSCULAR HGB CONC 31.2 g/dL (32.0-36.0); MEAN CORPUSCULAR VOLUME 94.1 fL (79-99); MONOCYTES # (AUTO) 0.4 K/uL (0.1-1.0); NEUTROPHILS # (AUTO) 3.9 K/uL (1.8-7.7); NEUTROPHILS % (AUTO) 67.7 % (40.0-77.0); PLATELET COUNT (AUTO) 164 K/uL (130-400); RED CELL DISTRIBUTION WIDTH 15.7 % (11.0-15.5); WHITE BLOOD COUNT (AUTO) 5.7 K/uL (4.8-10.8)
[2024-04-24 10:16] LABS: CREATININE 1.6 mg/dL (0.5-1.3); POTASSIUM 4.3 mmol/L (3.5-5.1)
[2024-04-24 10:20] LABS: INR 1.15 (0.85-1.15)
[2024-04-24 10:21] LABS: PARTIAL THROMBOPLASTIN TIME 36.2 SEC (26.3-35.5)
[2024-04-24 10:34] VITALS: BP 132/86; PULSE 77; RESP 18; TEMP 97.5
[2024-04-28] VITALS (8 sets, daily range): BP systolic 124–168; BP diastolic 72–98; PULSE 62–80; RESP 14–20; TEMP 97.1–207.1
[~2024-04-28] VITALS: Ht 170.2 cm; Wt 97.8 kg
[~2024-04-28 07:40] MED LIST changes: +ASPI-1005 PO; -ATOR40TA71 PO; -EMPA10TA PO; +EMPA25TA PO; -EZET10TA81 PO; +FERR-72 PO; -FOLI0.8T53 PO; +FURO20TA4 PO; -LEVO175T9 PO; -LEVO25TA9 PO; -SIME80TA12 PO
[2024-04-28] MEDS ORDERED: HEParin-NS 1,000 UNIT/500 ML 1,000 ML IV ONE (11:32)
[2024-04-28] MEDS ORDERED: LIDOCAINE HCL 400MG/20ML VIAL ONE (11:32)
[2024-04-28] MEDS ORDERED: FENTanyl CITRate PF 50 MCG/1 ML 2ML VIAL ONE (11:50)
[2024-04-28] MEDS ORDERED: MIDAZOLAM HCL 1 MG/ML 2ML VIAL ONE (11:50)
[2024-04-28] MEDS: 0.9%NACL 1000ML 1,000 ML IV SCH (12:11)
--- NOTE | 2024-04-28 13:31 | EKG ---
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
== END 2024-04-28 15:55 | disposition home or self-care (01) ==
LOC: DAH 07:40
PROVIDERS: ATTEND Internal Medicine Cardiovascular Disease
DX: I48.3 Typical atrial flutter (principal); I25.10 Atherosclerotic heart disease of native coronary artery without angina pectoris; I25.5 Ischemic cardiomyopathy; E78.5 Hyperlipidemia, unspecified; I11.0 Hypertensive heart disease with heart failure; I50.22 Chronic systolic (congestive) heart failure; E11.9 Type 2 diabetes mellitus without complications; E03.9 Hypothyroidism, unspecified; E66.9 Obesity, unspecified; Z79.82 Long term (current) use of aspirin; Z79.84 Long term (current) use of oral hypoglycemic drugs; Z68.33 Body mass index [BMI] 33.0-33.9, adult; Z79.899 Other long term (current) drug therapy; Z95.1 Presence of aortocoronary bypass graft; Z95.810 Presence of automatic (implantable) cardiac defibrillator
CPT/HCPCS: 80048; 85025; 85610; 85730; 36415; 93005 ×2; 93653; 82948; C1894 ×3; C1732 ×2; C1893; A4649 ×2; C1760; J3010; J3490; J7030; J2250; J1644; A4215; A4222; A4221; A4663; A4216; A4606; A4223 ×3; 99156; 99157